=== PATIENT | male | born 1995 | race Two or more races ===

== ENCOUNTER 2017-09-25 00:44 | Emergency (ER) | payer SELFPAY ==
[~2017-09-25] VITALS: Ht 172.7 cm; Wt 81.6 kg
--- NOTE | 2017-09-25 00:55 | NUR ---
PT [facility] FROM [facility], PT PER EMS WAS DRINKING TO MUCH ALCOHOL AND STARTED VOMITING ON HIMSELF PT DENIES ANY INJURY OR PAIN AT THIS TIME. PT AOX4 RR EVEN AND UNLABORED. +N/V. PT GOWNED AND PLACED ON MONITOR. PT NOT DIAPHORETIC. PT WAITING FOR MD HARTMAN.
[2017-09-25] MEDS ORDERED: IV NS 0.9% 1,000 ML BAG IV ONE (01:00)
[2017-09-25] MEDS ORDERED: FAMOTIDINE/PF INJ 20 MG/2 ML VIAL IV ONE ×2 (01:00→01:08)
[2017-09-25] MEDS ORDERED: ONDANSETRON HCL/PF 4 MG/2 ML VIAL IVP ONE (01:00)
[2017-09-25] MEDS ORDERED: ONDANSETRON HCL/PF 4 MG/2 ML VIAL ONE (01:08)
[2017-09-25 01:12] LABS: BASOPHILS % (AUTO) 0.4 % (0.0-2.0); EOSINOPHILS # (AUTO) 0.3 /CMM (0.0-0.7); EOSINOPHILS % (AUTO) 2.5 % (0.0-6.0); HEMATOCRIT 45 % (39-51); HEMOGLOBIN 14.6 g/dL (13.5-17.5); LYMPHOCYTES # (AUTO) 3.6 /CMM (0.8-4.8); LYMPHOCYTES % (AUTO) 29.5 % (20.0-44.0); MEAN CORPUSCULAR HEMOGLOBIN 30 PG (26.0-33.0); MEAN CORPUSCULAR HGB CONC 33 g/dl (31.0-36.0); MEAN CORPUSCULAR VOLUME 92 fL (80-96); MONOCYTES # (AUTO) 0.4 /CMM (0.1-1.30); MONOCYTES % (AUTO) 3.3 % (2.0-12.0); NEUTROPHILS # (AUTO) 7.7 /CMM (1.8-8.9); NEUTROPHILS % (AUTO) 64.3 % (43.0-81.0); PLATELET COUNT (AUTO) 253 /CMM (150-450); RDW COEFFICIENT OF VARIATION 12.6 (11.5-15.0); RED BLOOD CELL COUNT(AUTO) 4.86 MIL/uL (4.5-6.0); WHITE BLOOD COUNT (AUTO) 12.1 K/uL (4.3-11.0)
[2017-09-25 01:22] LABS: CALCIUM, SERUM 8.8 mg/dL (8.5-10.1); CREATININE 0.9 mg/dL (0.6-1.3); POTASSIUM 3.1 mmol/L (3.5-5.1)
[2017-09-25 01:28] LABS: ALBUMIN 4.1 g/dL (3.4-5.0); BILIRUBIN,TOTAL 0.1 mg/dL (0.2-1.0); TOTAL PROTEIN, SERUM 8.3 g/dL (6.4-8.2)
--- NOTE | 2017-09-25 01:48 | NUR ---
PT STATES FEELS BETTER. DR. SAL MADE AWARE
[2017-09-25] MEDS ORDERED: POTASSIUM CHLORIDE 20 MEQ TAB.PRT.SR PO ONE ×2 (01:52→02:00)
--- NOTE | 2017-09-25 02:06 | NUR ---
PT PASSED PO CHALLENGE. DR. SAL AWARE
--- NOTE | 2017-09-25 02:13 | NUR ---
DR. SAL AT BEDSIDE SPEAKING TO PT REGARDING RESULTS
--- NOTE | 2017-09-25 02:32 | NUR ---
IV removed. Catheter intact and site benign. Pressure and 4x4 applied to site. No bleeding noted. Patient discharged to home in stable condition. Written and verbal after care instructions given. Patient verbalizes understanding of instruction. ambulatory with a steady gait. instructed pt not to drive. pt verbalize understanding. pt accompanied by girlfriend. picked up by cousin.
[2017-09-25 02:34] VITALS: BP 116/68
== END 2017-09-25 02:35 | disposition home or self-care (01) ==
LOC: ER 00:46
DX: F10.129 Alcohol abuse with intoxication, unspecified (principal); E87.6 Hypokalemia; R11.2 Nausea with vomiting, unspecified
CPT/HCPCS: 36415; 80048; 80076; 83690; 85025; 96361; 96374; 96375; 99284; A4606; G0480; J2405; J3490; J7030; Z7610

== ENCOUNTER 2018-05-05 14:04 | Emergency (ER) | payer BC, MEDICAID ==
[~2018-05-05] VITALS: Ht 182.9 cm; Wt 91.2 kg
[2018-05-05 14:04] VITALS: BP 127/76
[2018-05-05] MEDS ORDERED: IBUPROFEN 600 MG TABLET PO STA (14:25)
[2018-05-05] MEDS ORDERED: IBUPROFEN 600 MG TABLET PO ONE (14:46)
== END 2018-05-05 16:08 | disposition home or self-care (01) ==
LOC: ER 14:06
DX: S63.694A Other sprain of right ring finger, initial encounter (principal); F12.10 Cannabis abuse, uncomplicated; W23.0XXA Caught, crushed, jammed, or pinched between moving objects, initial encounter; Y93.89 Activity, other specified; Y92.89 Other specified places as the place of occurrence of the external cause; Y99.8 Other external cause status
CPT/HCPCS: 29130; 73140; 99284; A4606; Z7610

== ENCOUNTER 2024-02-29 20:19 | Emergency (ER) | payer BC, OTHER ==
[~2024-02-29] VITALS: Ht 180.3 cm; Wt 99.8 kg
[2024-02-29] MEDS ORDERED: ACETAMINOPHEN 325 MG TABLET ONE (22:02)
[2024-02-29] MEDS ORDERED: KETOROLAC TROMETHAMINE INJ 30 MG/ML VIAL ONE (22:02)
[2024-02-29] MEDS: KETOROLAC TROMETHAMINE INJ 30 MG/ML VIAL IM ONE (22:14)
[2024-02-29] MEDS: ACETAMINOPHEN 325 MG TABLET PO ONE (22:15)
[2024-03-01] MEDS ORDERED: PENICILLIN G BENZATHINE 2.4 MMU/4 ML ML IM ONE (00:25)
[2024-03-01 00:27] VITALS: BP 134/91; TEMP 99; O2SAT 98
[2024-03-01] MEDS: PENICILLIN G BENZATHINE 2.4 MMU/4 ML ML IM ONE (00:31)
== END 2024-03-01 00:34 | disposition home or self-care (01) ==
LOC: ER 20:28
DX: J02.9 Acute pharyngitis, unspecified (principal); Z20.822 Contact with and (suspected) exposure to COVID-19
CPT/HCPCS: 99284; 87426; 96372 ×2; 87804 ×2; 87070; 87880; J1885; J0558; 86403-TC

== ENCOUNTER 2024-09-02 10:07 | Emergency (ER) | payer OTHER, MEDICAID ==
[~2024-09-02] VITALS: Ht 180.3 cm; Wt 102.1 kg
[2024-09-02 11:08] VITALS: BP 127/91; TEMP 97.9
[2024-09-02] MEDS ORDERED: AMOX/CLAVULANATE 875 MG TABLET ONE (11:31)
[2024-09-02] MEDS ORDERED: AMOX-430 PO (11:32)
[2024-09-02] MEDS: AMOX/CLAVULANATE 875 MG TABLET PO ONE (11:34)
[2024-09-02 11:49] VITALS: O2SAT 100
== END 2024-09-02 11:49 | disposition home or self-care (01) ==
LOC: ER 10:07
DX: S81.851A Open bite, right lower leg, initial encounter (principal); F12.90 Cannabis use, unspecified, uncomplicated; Z59.00 Homelessness unspecified; W54.0XXA Bitten by dog, initial encounter; Y93.89 Activity, other specified; Y92.89 Other specified places as the place of occurrence of the external cause; Y99.8 Other external cause status

== ENCOUNTER 2024-10-31 18:31 | Emergency (ER) | payer OTHER, MEDICAID ==
[~2024-10-31] VITALS: Ht 180.3 cm; Wt 90.7 kg
[~2024-10-31 18:31] MED LIST: AMOX-430 PO
[2024-10-31 18:55] VITALS: BP 161/105; TEMP 98.3
[2024-10-31 19:13] VITALS: O2SAT 99
== END 2024-10-31 19:14 | disposition home or self-care (01) ==
LOC: ER 18:35
DX: M25.572 Pain in left ankle and joints of left foot (principal); F12.90 Cannabis use, unspecified, uncomplicated; X50.1XXA Overexertion from prolonged static or awkward postures, initial encounter; Y93.89 Activity, other specified; Y92.89 Other specified places as the place of occurrence of the external cause; Y99.8 Other external cause status